=== PATIENT | female | born 1955 | race Caucasian/White ===

== ENCOUNTER → 2019-04-20 | Outpatient (CLI) | payer OTHER ==
[~2019-04-20] MED LIST: ALBU90OI INH; AMOCLA875 PO; FURO100EL PO; LEVFLO500 PO; MUPI2TC TOP; OMEP20ER PO; OXYB5 PO; OXYGEN; PARO20; RISP2; RISP2 PO; TIOT18; [UNRECOGNIZED DRUG - REMARK]; [UNRECOGNIZED DRUG - REMARK]; [UNRECOGNIZED DRUG - REMARK]
[2019-04-23 15:31] LABS: Adenovirus F 40/41 Not Detected (NOT DETECT); Astrovirus Not Detected (NOT DETECT); Campylobacter Sp Not Detected (NOT DETECT); Cryptosporidium Not Detected (NOT DETECT); Cyclospora Cayetanensis Not Detected (NOT DETECT); E. Coli O157 Not Detected (NOT DETECT); Entamoeba Histolytica Not Detected (NOT DETECT); Enteroaggregative E. coli-EAEC Not Detected (NOT DETECT); Enteropathogenic E. coli-EPEC Not Detected (NOT DETECT); Enterotoxigenic E. coli-ETEC Not Detected (NOT DETECT); Giardia Lamblia Not Detected (NOT DETECT); Norovirus GI/GII Not Detected (NOT DETECT); Plesiomonas Shigelloides Not Detected (NOT DETECT); Rotavirus A Not Detected (NOT DETECT); Salmonella Sp Not Detected (NOT DETECT); Sapovirus Not Detected (NOT DETECT); Shiga Toxin-prod E. coli-STEC Not Detected (NOT DETECT); Shigella/Enteroin E. coli-EIEC Not Detected (NOT DETECT); Vibrio Cholerae Not Detected (NOT DETECT); Vibrio Sp Not Detected (NOT DETECT); Yersinia Enterocolitica Not Detected (NOT DETECT)
== END | disposition home or self-care (01) ==
LOC: LAB EV 20:10
PROVIDERS: Physician Assistant
DX: R19.7 Diarrhea, unspecified (principal)
CPT/HCPCS: 0097U

== ENCOUNTER 2021-03-15 16:53 | Inpatient (IN) | payer OTHER ==
[~2021-03-15] VITALS: Ht 167.6 cm; Wt 75.7 kg
[~2021-03-15 16:53] MED LIST changes: +RISP1 PO; -RISP2 PO
[2021-03-15 17:37] LABS: BASOPHILS ABSOLUTE AUTO 0.07 K/mm3 (0.00-0.23); BASOPHILS PERCENT AUTO 0 % (0-2); EOSINOPHILS ABSOLUTE AUTO 0.01 K/mm3 (0.00-0.68); EOSINOPHILS PERCENT AUTO 0 % (0-6); Hematocrit 45.1 % (33.0-51.0); Hemoglobin 16.2 g/dL (11.5-16.0); IMMATURE GRAN ABSOLUTE AUTO 0.19 K/mm3 (0.00-0.10); IMMATURE GRAN PERCENT AUTO 1 % (0-1); LYMPHOCYTES ABSOLUTE AUTO 0.93 K/mm3 (0.84-5.20); LYMPHOCYTES PERCENT AUTO 4 % (21-46); MONOCYTES PERCENT AUTO 8 % (4-13); Mean Corpuscular HGB 32.2 pg (26.0-34.0); Mean Corpuscular HGB Conc 35.9 g/dL (31.5-36.5); Mean Corpuscular Volume 90 fL (80-100); Mean Platelet Volume 8.4 fL (9.1-12.4); NEUTROPHILS PERCENT AUTO 88 % (41-73); Platelet Count 276 K/mm3 (150-400); RDW Coefficient Variation 12.5 % (11.7-14.2); RDW Standard Deviation 41.2 fL (35.1-46.3); Red Blood Cell Count 5.03 M/mm3 (3.80-5.20)
[2021-03-15 18:01] LABS: Alanine Aminotransfer (ALT/SGP 142 U/L (12-78); Albumin, Blood 3.2 g/dL (3.4-5.0); Albumin/Globulin Ratio 0.9 (0.8-1.8); Alk Phos 96 U/L (50-136); Anion Gap 11 mmol/L (6-16); Aspartate Aminotrans (AST/SGOT 498 U/L (12-37); Bilirubin, Total 0.9 mg/dL (0.1-1.0); Blood Urea Nitrogen 24 mg/dL (8-24); Bun/Creatinine Ratio 37.9 (12.0-20.0); CO2, Blood 26 mmol/L (21-32); Calcium, Blood 9.5 mg/dL (8.5-10.1); Chloride, Blood 83 mmol/L (98-108); Creatinine, Blood 0.63 mg/dL (0.40-1.00); Ethanol (Alcohol), Blood, Med <3 mg/dL; Globulin, Blood 3.7 g/dL (2.2-4.0); Glomerular Filtration Rate >60 (60-); Glucose, Blood 62 mg/dL (70-99); Magnesium, Blood 1.9 mg/dL (1.6-2.4); Potassium, Blood 3.8 mmol/L (3.5-5.5); Sodium, Blood 120 mmol/L (136-145); Total Protein, Blood 6.9 g/dL (6.4-8.2); Troponin I 0.348 ng/mL (0.000-0.040)
[2021-03-15 18:25] LABS: CPK Creatine Kinase 7142 U/L (26-193)
[2021-03-15 18:38] LABS: Creatine Kinase MB 66.1 ng/mL (0.0-3.6); Creatine Kinase MB Index 0.9 (0.0-4.0)
[2021-03-15 18:41] LABS: Source, Urine Catheter
[2021-03-15 18:44] LABS: Bilirubin, Urine Neg (Neg); Blood, Urine 5+ (Neg); Color, Urine Yellow (P-Yellow); Glucose Qualitative, Urine Neg (Neg); Ketones, Urine 4+ (Neg); Leukocyte Esterase, Urine Neg (Neg); Nitrite, Urine Pos (Neg); Protein, Urine 3+ (Neg); Specific Gravity, Urine 1.025 (1.003-1.022); Urobilinogen, Urine NORM (Normal)
[2021-03-15 18:45] LABS: SARS-Cov-2 (COVID-19) PCR, MMC NEGATIVE (NEGATIVE)
[2021-03-15 18:48] LABS: Appearance, Urine Hazy (Clear)
[2021-03-15 18:52] LABS: Bacteria Many /hpf
[2021-03-15 18:54] LABS: Red Blood Cells, Urine 0-2 /hpf (0-2)
[2021-03-15 18:56] LABS: Squamous Epithelial Cells Rare /hpf (Few)
[2021-03-15 18:57] LABS: U Amphetamine Screen Not Detected; U Barbituate Screen Not Detected; U Benzodiazapine Screen Not Detected; U Buprenorphine Screen Not Detected; U Cannabinoids Screen Not Detected; U Cocaine Screen Not Detected; U Methadone Screen Not Detected; U Methamphetamine Screen Not Detected; U Opiates Screen Not Detected; U Oxycodone Screen Not Detected; U Phencyclidine Screen Not Detected; U Propoxyphene Screen Not Detected
[2021-03-15 22:15] LABS: International Normalized Ratio 1.12; Prothrombin Time Results 11.7 Sec (9.7-11.5)
[2021-03-16 00:09] LABS: PCO2 Arterial 63.1 mmHg (35-45); PO2 Arterial 72.7 mmHg (80-100); pH Blood Arterial 7.27 (7.35-7.45)
[2021-03-16 01:29] LABS: BASOPHILS ABSOLUTE AUTO 0.04 K/mm3 (0.00-0.23); BASOPHILS PERCENT AUTO 0 % (0-2); EOSINOPHILS ABSOLUTE AUTO 0.02 K/mm3 (0.00-0.68); EOSINOPHILS PERCENT AUTO 0 % (0-6); Hematocrit 38.7 % (33.0-51.0); Hemoglobin 13.8 g/dL (11.5-16.0); IMMATURE GRAN ABSOLUTE AUTO 0.12 K/mm3 (0.00-0.10); IMMATURE GRAN PERCENT AUTO 1 % (0-1); LYMPHOCYTES ABSOLUTE AUTO 0.95 K/mm3 (0.84-5.20); LYMPHOCYTES PERCENT AUTO 5 % (21-46); MONOCYTES ABSOLUTE AUTO 2.14 K/mm3 (0.16-1.47); MONOCYTES PERCENT AUTO 10 % (4-13); Mean Corpuscular HGB 32.4 pg (26.0-34.0); Mean Corpuscular HGB Conc 35.7 g/dL (31.5-36.5); Mean Corpuscular Volume 91 fL (80-100); Mean Platelet Volume 8.7 fL (9.1-12.4); NEUTROPHILS ABSOLUTE AUTO 17.67 K/mm3 (1.96-9.15); NEUTROPHILS PERCENT AUTO 84 % (41-73); Platelet Count 247 K/mm3 (150-400); RDW Coefficient Variation 12.7 % (11.7-14.2); RDW Standard Deviation 42.5 fL (35.1-46.3); Red Blood Cell Count 4.26 M/mm3 (3.80-5.20); White Blood Cell Count 20.94 K/mm3 (4.00-11.30)
[2021-03-16 01:47] LABS: Alanine Aminotransfer (ALT/SGP 116 U/L (12-78); Albumin, Blood 2.5 g/dL (3.4-5.0); Albumin/Globulin Ratio 0.8 (0.8-1.8); Alk Phos 81 U/L (50-136); Anion Gap 5 mmol/L (6-16); Aspartate Aminotrans (AST/SGOT 333 U/L (12-37); Bilirubin, Total 0.4 mg/dL (0.1-1.0); Blood Urea Nitrogen 22 mg/dL (8-24); Bun/Creatinine Ratio 36.2 (12.0-20.0); CO2, Blood 29 mmol/L (21-32); Calcium, Blood 8.8 mg/dL (8.5-10.1); Chloride, Blood 92 mmol/L (98-108); Creatinine, Blood 0.61 mg/dL (0.40-1.00); Globulin, Blood 3.2 g/dL (2.2-4.0); Glomerular Filtration Rate >60 (60-); Glucose, Blood 111 mg/dL (70-99); Potassium, Blood 4.3 mmol/L (3.5-5.5); Sodium, Blood 126 mmol/L (136-145); Total Protein, Blood 5.7 g/dL (6.4-8.2)
--- NOTE | 2021-03-16 04:51 | NUR ---
ADMISSION SUMMARY. PT IS A&O TO SELF. PT IS ON 4L O2 VIA NC. CPAP MACHINE AT BEDTIME DUE TO INCREASED ABG PER RT.PT HAD INTERMITTEN DESATURATION EPISODES ON CPAP. RT MONITORING. PT HAD A -VE CT SCAN. NO ACUTE CHANGES NOTED.PT HAS A NECROTIC LOOKING WOUND ON LEFT FOOT. SCHEDULED MEDS ADMINISTERED PER EMAR, PT TOLERATED WELL. ADLS PROVIDED. SAFETY MEASURES IN PLACE. WILL CONTINUE TO MONITOR.
[2021-03-16 09:51] LABS: Anion Gap 5 mmol/L (6-16); Blood Urea Nitrogen 19 mg/dL (8-24); CO2, Blood 28 mmol/L (21-32); Calcium, Blood 8.8 mg/dL (8.5-10.1); Chloride, Blood 95 mmol/L (98-108); Creatinine, Blood 0.59 mg/dL (0.40-1.00); Glomerular Filtration Rate >60 (60-); Glucose, Blood 86 mg/dL (70-99); Potassium, Blood 4.1 mmol/L (3.5-5.5); Sodium, Blood 128 mmol/L (136-145)
--- NOTE | 2021-03-16 13:45 | NUR ---
ADMIT: 03/15/21 DISCHARGE: TBD DX: Sepsis CC: Margi Arana RESIDENCE: Home - [address] [place] [address] [address] [place], [place]. [address] [employer]/Contacts: Christiano Armijo, Brother - [phone] Prior to admit - DME: Oxygen equipment CCM: None HHC/Hospice: None H&P as noted by Jerrod Peacock MD
--- NOTE | 2021-03-16 18:46 | NUR ---
Alert and oriented x2 with forgetfulness . Denies any pain, headache , dizziness or nausea. One person assist with ADLS. Continue on 6 Liter High flow oxygen with sp02 at 94 % or greater, No SOB noted. Contiune on Ceftriaxone for UTI sepsis. Keppra was given for seizure. Sodium 128 and Echo was unremarkable. Blood culure was positive for gram positive cocci and Dr Snider notified. Vitas signs are stable. Bed alarm on and call light within reach. Continue to monitor.
[2021-03-17 01:04] LABS: PO2 Arterial 54.4 mmHg (80-100); pH Blood Arterial 7.24 (7.35-7.45)
[2021-03-17 01:05] LABS: PCO2 Arterial 76.7 mmHg (35-45)
--- NOTE | 2021-03-17 04:40 | NUR ---
SHIFT SUMMARY PT NOT EASILY AROUSABLE MOST OF TNHE SHIFT. PT ON O2 6L VIA NC. PT IS ON BIPAP MACHINE WITH HIGH HANNA. 0119 PT NOTED TO BE DESATURATING TO THE LOW 80S ON MONITOR. RT NOTIFIED. ABGS ORDERED. PH 7.24, CO2 76. DR. GRACE NOTIFIED. PT TRANSFERED TO PCU FOR FURTHER INTERVENTION. WILL CONTINUE TO MONITOR .
--- NOTE | 2021-03-17 06:24 | NUR ---
SHIFT SUMMARY TRANSFER PT FROM [facility] FLOOR. ARRIVAL AT 0235. INCOHERENT AND LETHARGIC. PH OF 7.24 AT 0100 . ON BIPAP 14/ 50 FIO2, MAINTAINING SATS OVER 95%. PT IS INCONTINENT OF URINE. TELE READS NSR 80'S. BP STABLE. LEFT A/C SALINE LOCKED. SCATTERED SCABS ALL ACROSS BODY. COVERED WITH MEPILEXES. PT REMAINS ON BEDREST. Q2 TURNS. LEFT IN BED SLEEPING WITH CALL ALARM AT SIDE. WILL CONTINUE TO MONITOR [facility]NT[facility]
--- NOTE | 2021-03-17 16:57 | NUR ---
SHIFT SUMMARY PT WAS UNRESPONSIVE EXCEPT TO PAINFUL STIMULI AT THE BEGINNING OF THE SHIFT. AT APPROXIMATELY 1500 PT BEGAN TO ROUSE. BIPAP WAS REMOVED AND HIGH FLOW NASAL CANNULA WAS PLACED AT 10L. SPO2 HAS MAINTAINED >90%. DUE TO PT BEING UNRESPONSIVE, ALCOHOL WITHDRAWAL SCORING WAS NOT DONE. PT STATED THAT THEY RARELY DRINK ALCOHOL DURING INTERVIEW AFTER ROUSING. PT ALSO STATED THAT THEY WERE DIAGNOSED WITH DM IN THE RECENT PAST. PT IS STILL LETHARGIC. VSS, NO OTHER ACUTE CHANGES NOTED.
--- NOTE | 2021-03-18 06:10 | NUR ---
SHIFT SUMMARY NO ACUTE CHANGES THIS SHIFT. PT LETHARGIC WHILE ON BIPAP. ON BIPAP 14/6 40% FIO2 MOST OF NIGHT SLEEPING. CURRENTLY AWAKE, SEATED UP, AND ON 5L NC. IMPROVED MENTATION THIS MORNING. TELE READS NSR 60'S. BP STABLE. PT REMAINS INCONTINENT THIS EVENING. PT UNABLE TO EFFECTIVELY SWALLOW FLUIDS. WILL FOLLOW UP FOR SWALLOW EVAL. WILL CONTINUE TO MONITOR TILL REPORT GIVEN TO DAYSCAMILO RESENDIZ
--- NOTE | 2021-03-18 10:10 | NUR ---
CARE ASSUMPTION PATIENT A/OX4, MOMENTS OF CONFUSION. VSS. SPO2 >90% ON 6L HF. PATIENT REPORTS NO PAIN, CHEST PAIN, OR SOB. PATIENT WAS ABLE TO EAT BREAKFAST. BED IN LOWEST POSITION AND CALL LIGHT WITHIN REACH. WILL CONTINUE TO MONITOR AND PROVIDE CARE.
--- NOTE | 2021-03-18 17:57 | NUR ---
SHIFT SUMMARY PATIENT ALERT AND ORIENTATED X3, BUT HAS MOMENTS OF CONFUSION AND FORGETFULLNESS. VSS. TELE SR 70S. SPO2 >90% HIGH FLOW NC 10L. PATIENT REPORTS NO CHEST PAIN, PAIN, OR SOB. PATIENT IS INCONTINENT. PATIENT HAS WOUNDS FROM FALL AT HOME AND PICTURES ARE IN THE CHART. DRESSING CHANGED ON RIGHT FOOT, AND WOUND CARE DONE TO KNEES. NO ACUTE CHANGES THIS SHIFT. CALL LIGHT WITHIN REACH. WILL CONTINUE TO MONITOR AND PROVIDE CARE UNTIL HAND OFF WITH NEXT SHIFT.
[2021-03-19 04:33] LABS: Source, Urine Catheter
[2021-03-19 04:40] LABS: Bilirubin, Urine Neg (Neg); Blood, Urine 1+ (Neg); Glucose Qualitative, Urine Neg (Neg); Ketones, Urine Neg (Neg); Leukocyte Esterase, Urine Neg (Neg); Nitrite, Urine Neg (Neg); Protein, Urine Neg (Neg); Urobilinogen, Urine NORM (Normal)
[2021-03-19 05:04] LABS: Appearance, Urine Clear (Clear); Color, Urine Yellow (P-Yellow)
[2021-03-19 05:05] LABS: Bacteria Few /hpf; Red Blood Cells, Urine 0-2 /hpf (0-2); Squamous Epithelial Cells Mod /hpf (Few); White Blood Cells, Urine Not Seen /hpf (0-5)
--- NOTE | 2021-03-19 06:42 | NUR ---
SHIFT SUMMARY PT RESTED THROUGH THE NIGHT SOME, BUT WAS VERY ANXIOUS AND RESTLESS AT TIMES. VERY CONFUSED THROUGH THE NIGHT. BED ALARM ON, REORIENTING OFTEN. PRN ATIVAN GIVEN. SATS >90% ON 2-4LNC (BASELINE 4LNC), TELE NSR. CROCKER PLACED - DRIANING TO GRAVITY. VSS. NO C/O PAIN. CALL LIGHT WITHIN REACH, BED IN LWOEST POSITION. WILL CONTINUE TO MONITOR.
--- NOTE | 2021-03-19 08:16 | NUR ---
CARE ASSUMPTION PATIENT IS LETHARGIC, AROUSABLE WITH VERBAL STIMULIS, BUT FALLS BACK ASLEEP QUICKLY. VSS. TELE SR. SPO2 >90% ON 4L NC (BASELINE). PATIENT REPORTS NO PAIN, CHEST PAIN, OR SOB. CALL LIGHT WITHIN REACH, BED IN LOWEST POSITION, AND BED ALARM ON. WILL CONTIUE TO MONITOR AND PROVIDE CARE.
[2021-03-19 09:30] LABS: BASOPHILS ABSOLUTE AUTO 0.02 K/mm3 (0.00-0.23); BASOPHILS PERCENT AUTO 0 % (0-2); EOSINOPHILS ABSOLUTE AUTO 0.02 K/mm3 (0.00-0.68); EOSINOPHILS PERCENT AUTO 0 % (0-6); Hematocrit 38.6 % (33.0-51.0); Hemoglobin 12.8 g/dL (11.5-16.0); IMMATURE GRAN ABSOLUTE AUTO 0.09 K/mm3 (0.00-0.10); IMMATURE GRAN PERCENT AUTO 1 % (0-1); LYMPHOCYTES ABSOLUTE AUTO 1.08 K/mm3 (0.84-5.20); LYMPHOCYTES PERCENT AUTO 9 % (21-46); MONOCYTES ABSOLUTE AUTO 1.42 K/mm3 (0.16-1.47); MONOCYTES PERCENT AUTO 11 % (4-13); Mean Corpuscular HGB 32.2 pg (26.0-34.0); Mean Corpuscular HGB Conc 33.2 g/dL (31.5-36.5); Mean Corpuscular Volume 97 fL (80-100); Mean Platelet Volume 8.8 fL (9.1-12.4); NEUTROPHILS ABSOLUTE AUTO 9.99 K/mm3 (1.96-9.15); NEUTROPHILS PERCENT AUTO 79 % (41-73); Platelet Count 216 K/mm3 (150-400); RDW Standard Deviation 46.7 fL (35.1-46.3); Red Blood Cell Count 3.98 M/mm3 (3.80-5.20); White Blood Cell Count 12.62 K/mm3 (4.00-11.30)
[2021-03-19 09:48] LABS: Anion Gap 1 mmol/L (6-16); Blood Urea Nitrogen 8 mg/dL (8-24); Bun/Creatinine Ratio 18.7 (12.0-20.0); CO2, Blood 40 mmol/L (21-32); Calcium, Blood 8.9 mg/dL (8.5-10.1); Chloride, Blood 92 mmol/L (98-108); Creatinine, Blood 0.43 mg/dL (0.40-1.00); Glomerular Filtration Rate >60 (60-); Glucose, Blood 106 mg/dL (70-99); Sodium, Blood 133 mmol/L (136-145)
[2021-03-19 11:50] LABS: PCO2 Arterial 65 mmHg (35-45); PO2 Arterial 76 mmHg (80-100); pH Blood Arterial 7.44 (7.35-7.45)
--- NOTE | 2021-03-19 17:45 | NUR ---
SHIFT SUMMARY PATIENT IS A/OX3, MOMENTS OF CONFUSION. SLEPT MOST OF THE DAY. VSS. SPO2 >90% ON 4L NC. TELE SR. CROCKER IN PLACE DRAINING WITH GRAVITY, JACKELIN COLOR AND CLEAR. NO PAIN, CHEST PAIN, OR SHORTNESS OF BREATH. BED IN LOWEST POSITION AND CALL LIGHT WITHIN REACH. WILL CONTINUE TO MONITOR AND PROVIDE CARE UNTIL HAND OFF WITH NEXT SHIFT.
--- NOTE | 2021-03-20 04:12 | NUR ---
SHIFT SUMMARY: PT RESTLESS THIS SHIFT, TRYING TO REMOVE BIPAP AND GET OOB. MEDICATED WITH PRN ATIVAN WHEN REDIRECTION FAILED. PLACED ON BIPAP AT HS, SATS >93%, LUNG SOUNDS DECREASED THROUGHOUT. REQUIRES ASSISTANCE TO TURN AND REPOSITION, PT DID RELAX AND BECOME LESS AGITATED AFTER ATIVAN ADMIN. SR/ST THROUGHOUT NIGHT, VSS AND AFEBRILE. WILL CONTINUE TO MONITOR. ASTRID FAIR
[2021-03-20 08:50] LABS: BASOPHILS ABSOLUTE AUTO 0.02 K/mm3 (0.00-0.23); BASOPHILS PERCENT AUTO 0 % (0-2); EOSINOPHILS PERCENT AUTO 0 % (0-6); Hematocrit 39.5 % (33.0-51.0); Hemoglobin 12.9 g/dL (11.5-16.0); IMMATURE GRAN ABSOLUTE AUTO 0.07 K/mm3 (0.00-0.10); IMMATURE GRAN PERCENT AUTO 1 % (0-1); LYMPHOCYTES ABSOLUTE AUTO 0.99 K/mm3 (0.84-5.20); LYMPHOCYTES PERCENT AUTO 8 % (21-46); MONOCYTES ABSOLUTE AUTO 1.16 K/mm3 (0.16-1.47); MONOCYTES PERCENT AUTO 10 % (4-13); Mean Corpuscular HGB 31.6 pg (26.0-34.0); Mean Corpuscular HGB Conc 32.7 g/dL (31.5-36.5); Mean Corpuscular Volume 97 fL (80-100); Mean Platelet Volume 8.8 fL (9.1-12.4); NEUTROPHILS ABSOLUTE AUTO 9.49 K/mm3 (1.96-9.15); NEUTROPHILS PERCENT AUTO 81 % (41-73); Platelet Count 213 K/mm3 (150-400); RDW Coefficient Variation 12.9 % (11.7-14.2); RDW Standard Deviation 46.4 fL (35.1-46.3); Red Blood Cell Count 4.08 M/mm3 (3.80-5.20); White Blood Cell Count 11.73 K/mm3 (4.00-11.30)
[2021-03-20 09:07] LABS: Anion Gap 1 mmol/L (6-16); Blood Urea Nitrogen 9 mg/dL (8-24); Bun/Creatinine Ratio 19.7 (12.0-20.0); CO2, Blood 41 mmol/L (21-32); Chloride, Blood 92 mmol/L (98-108); Creatinine, Blood 0.46 mg/dL (0.40-1.00); Glomerular Filtration Rate >60 (60-); Glucose, Blood 95 mg/dL (70-99); Potassium, Blood 4.1 mmol/L (3.5-5.5); Sodium, Blood 134 mmol/L (136-145)
--- NOTE | 2021-03-20 16:42 | NUR ---
report called to medical floor RN who will assume pt care. NS INFUSING AT 125ML/HR PER ORDERS. ALL BELONGINGS WITH PT ON TRANSFER.
--- NOTE | 2021-03-20 18:25 | NUR ---
ASSSUMPTION OF CARE PATIENT CAME TO 358 FROM PCU 14 AT 1630 THIS SHIFT. VITAL SIGNS STABLE, PATIENT SHOWN HOW TO USE THE CALL LIGHT.
--- NOTE | 2021-03-21 03:40 | NUR ---
SHIFT SUMMARY INCREASED OXYGEN TO 10LPM VIA NASAL CANULA AT 0300. PT BEGAN TO DE-SAT DOWN TO THE 80'S WITH AUDIBLE WHEEZING HEARD FROM HALLWAY. PT WAS ABLE TO TOLERATE TITRATING OXYGEN DOWN TO 6LPM VIA NC. INITIALLY, PT TOLERATED WEARING THE C-PAP FOR SLEEP FROM 22:00 TO 01:00. THEN, PT STATED SHE WANTED TO USE NC. RN NOTIFIED RT MIKE M. PT RECEIVED ATIVAN AT 02:30 DUE TO REPORTING ANXIETY. PT C/O PAIN TO HER LEFT CHEST WALL, WITH BREATHING. WHEEZING IN ALL LUNG VAZQUEZ. PT SATING AT 98% ON 6LPM. RT NOTIFIED. CROCKER IN PLACE, DRAINING DARK YELLOW URINE. IV INFUSING NS AT 125ML/HR IN RFA. BED IN LOWEST POSITION. CALL LIGHT WITHIN REACH, NEAR NURSES' DESK FOR FREQUENT MONITORING.
--- NOTE | 2021-03-21 03:55 | NUR ---
WOUND CARE COMPLETED - RE-WRAPPED PT'S RIGHT FOOT WITH KERLEX DUE TO SATURATION FROM MEDI-HONEY. CLEANSED WOUNDS ON BILAT KNEES WITH WOUND CLEANSER, PATTED DRY, APPLIED SKIN PREP. PT RECIEVED PRN BREATHING TREATMENTS TWICE THIS SHIFT.
[2021-03-21 05:33] LABS: Anion Gap 1 mmol/L (6-16); Blood Urea Nitrogen 7 mg/dL (8-24); Bun/Creatinine Ratio 17.3 (12.0-20.0); CO2, Blood 39 mmol/L (21-32); Calcium, Blood 8.6 mg/dL (8.5-10.1); Chloride, Blood 93 mmol/L (98-108); Glomerular Filtration Rate >60 (60-); Glucose, Blood 90 mg/dL (70-99); Potassium, Blood 3.8 mmol/L (3.5-5.5); Sodium, Blood 133 mmol/L (136-145)
--- NOTE | 2021-03-21 14:45 | NUR ---
Brief visit this afternoon. Pt resting in bed and is A&OX3. Pt reports mild pain in her heart and lungs. Pt reports living alone and has a brother that lives in [place]. Pt reports plan to call her community case manager to set up caregiver support when she returns home. Review of POC with Pt and offered therapeutic listening. Ended visit to allow Pt to rest. Spoke with Pt's Primary RN Eun and discussed case. Palliative Care will remain available.
--- NOTE | 2021-03-22 03:47 | NUR ---
SHIFT SUMMARY PT BECAME VERY RESTLESS THIS SHIFT. UNABLE TO TOLERATE C-PAP AT NIGHT FOR SLEEP, RT NOTIFIED. PT SATING ABOVE 92% ON 4LPM VIA NASAL CANULA. PT ATTEMPTING TO GET OUT OF BED INDEPENDENTLY. BED ALARM ON. PT EDUCATED THAT IT IS NOT SAFE FOR HER TO GET OUT OF BED WITHOUT STAFF PRESENT. PT REPORTS SHE IS CONCERNED FOR THE SAFETY OF HER APARTMENT. PRN ATIVAN GIVEN. BED IN LOWEST POSITION, WILL CONTINUE TO MONITOR WITH BED ALARM ON.
[2021-03-22 05:46] LABS: Anion Gap 1 mmol/L (6-16); Blood Urea Nitrogen 6 mg/dL (8-24); Bun/Creatinine Ratio 14.2 (12.0-20.0); CO2, Blood 40 mmol/L (21-32); Calcium, Blood 9.8 mg/dL (8.5-10.1); Chloride, Blood 93 mmol/L (98-108); Creatinine, Blood 0.42 mg/dL (0.40-1.00); Glomerular Filtration Rate >60 (60-); Glucose, Blood 115 mg/dL (70-99); Sodium, Blood 134 mmol/L (136-145)
--- NOTE | 2021-03-22 16:58 | NUR ---
SHIFT SUMMARY PT RESTING QUIETLY AT START OF SHIFT. ADMITTED FOR SEPSIS R/T UTI. PT SEEMS ORIENTED AT TIMES, BUT THEN COMPLETELY CONFUSED AT OTHER TIMES. PT WANTING TO GO HOME, BUT LIVES ALONE AND WAS FOUND DOWN. PT HAVING FREQUENT FALLS AT HOME. KNEES WITH DEEP ABRASIONS ON THEM. FOOT WOUND WITH DRSNahun C/D/I; TO BE CHANGED TOMORROW, Q3 DAYS. DR CANDELARIO IN TO SEE PT THIS AM. PT UNABLE TO CARE TO FOR HERSELF AT THIS TIME. PT TO BE SEEN BY P/T FOR D/C PLANNING. OBI TAYLOR D/C'D. PT REPORTED THAT SHE WAS INDEPENDENT TO BTHRM AT HOME BEFORE COMING TO HOSPITAL. PT HAS BEEN UP TO EOB FREQUENTLY SETTING OFF BED ALARM ALL DAY, WANTING TO GO SHOPPING. PT ORIENTED BUT FORGETFUL. ASSISTED PT IN CALLING FRIEND WHO IS TAKING CARE OF HER CAT. PT GRATEFUL. CALL LT IN REACH.
--- NOTE | 2021-03-23 05:16 | NUR ---
PT IS ASLEEP LYING IN BED. RR EVEN AND UNLABORED CURRENTLY ON 4L NC. PT IS IN VEST RESTRAINT DUE TO SEVERAL ATTEMPTS TO GET OUT OF BED. PT REQUIRED FREQUENT REORIENTING. BED ALARM ON, BED IN LOW POSITION AND CALL LIGHT WITHIN REACH.
[2021-03-23 05:33] LABS: Anion Gap 0 mmol/L (6-16); Blood Urea Nitrogen 11 mg/dL (8-24); CO2, Blood 43 mmol/L (21-32); Calcium, Blood 9.3 mg/dL (8.5-10.1); Chloride, Blood 92 mmol/L (98-108); Creatinine, Blood 0.46 mg/dL (0.40-1.00); Glomerular Filtration Rate >60 (60-); Glucose, Blood 102 mg/dL (70-99); Potassium, Blood 4.4 mmol/L (3.5-5.5); Sodium, Blood 135 mmol/L (136-145)
--- NOTE | 2021-03-23 09:56 | NUR ---
Per chart review, pt. has potential to discharge within the next 24-48 hours. SNF indicated per PT notes on 03/20/21. Patient remains on O2 4LPM via NC. Plan to discuss long-term care planning with pt. today. We will need to determine what support she is likely to need post discharge from SNF. Unable to discuss last week. Pt. does have some family support. Insurance is [employer]. She also has A as secondary. Potential to assist pt. in securing long-term care benefits or caregiver benefits through [facility]. I will work with [facility] staff to assist with that process. Patient has been restraint which will certainly be of concern for the SNF. It appears that restraints have been placed due to patient getting out of bed and concerns with safety. [facility] bed alarm is used as an alternative. The SNF will likely require 24-48 hours without restraints. We will need [employer] approval for SNF as well. Hoping PT will be able to see pt. this am. We will need recent PT assessment. I will contact Lydia to request review once PT notes for today are avaiable.
--- NOTE | 2021-03-23 13:54 | NUR ---
FLU SHOT GIVEN VERBAL CONSENT FROM PT. FLU SHOT GIVEN IN L DELTOID, PT TOLERATED WELL.
--- NOTE | 2021-03-23 15:54 | NUR ---
WOUND CARE WOUND CARE COMPLETEED AFTER PT SHOWER TODAY. R FOOT ABRASION NOTED TO HAVE SIGNIFICANT CHANGE IN COLOR OF THICK BLACK ESCHAR. MD CONSULTED AND AT BEDSIDE TO EVALUATE. DISCUSSED PLANS FOR MD TO DEBRIDMENT TOMORROW. NEW PICTURE OF FOOT WOUND TAKEN AND PLACED IN CHART. RT FOOT AND KNEEW WOUND CLEANSED MEDIHONEY APPLIED AND COVERED WITH EXUDRY PAD AND WRAPPED WITH KURLEX TO SECURE IN PLACE. PT TOLERATED WELL.
--- NOTE | 2021-03-23 17:41 | NUR ---
SHIFT SUMMARY 65 Y FEMALE ADMITTED WITH SEPSIS AND UTI AFTER BEING FOUND DOWN AT HOME. PT HAS BEEN A&O, PLEASANT AND COOPERATIVE WITH CARE. RESTRAINTS WERE REMOVED AT BEGINING OF SHIFT AND PT HAS CALLED APPROPRIATELY FOR ASSISTANCE. PT EVAL DONE TODAY AND PT TOLERATED WELL. WOUND CARE COMPLETED (SEE SEPARATE NOTE) TODAY AND PLANS FOR WOUND DEBRIDMENT OF R FOOT WOUND PENDING FOR TOMORROW. D/C PLANNING IN PROCESS, PT CURRENTLY LIVES AT HOME ALONE AND MAY REQUIRE ADDITIONAL SERVICES. NO OTHER CHANGES THIS SHIFT.
--- NOTE | 2021-03-23 17:54 | NUR ---
Discussed recommendation for SNF with pt. who is agreeable to going. Denied preference on facility. Packet sent for review to [facility] for inpatient rehab. Contacted Mikaela with [facility] central admissions to discuss patient's care. They will be reviewing her chart. Plan to request prior auth tomorrow morning if patient is accepted to facility.
--- NOTE | 2021-03-24 05:57 | NUR ---
PATIENT IS ASLEEP LYING IN BED. RR EVEN AND UNLABORED. PT HAS EPISODES OF SOB WITH MOVEMENT CURRENTLY ON 4L NC. NO ACUTE CHANGES OVERNIGHT, BED ALARM ON, BED IN LOW POSITION AND CALL LIGHT WITHIN REACH.
--- NOTE | 2021-03-24 16:36 | NUR ---
PATIENT ALERT AND ORIENTED WITH NOTED FORGETFULNESS. PLEASANT WITH STAFF AND COOPERATIVE WITH CARE. RLE AND R FOOT WOUNDS DEBREDED BY DR YANCEY THIS AFTERNOON; WOUND CARE PERFORMED INSTRUCTED BY MD. PATIENT CALLS FOR STAFF ASSIST NEEDED. CALL LIGHT WITHIN REACH.
--- NOTE | 2021-03-25 06:07 | NUR ---
SHIFT SUMMARY PT IS A&OX3, FORGETFUL AT TIMES. PT IS ON 4-5L O2. MEDS ADMINISTERED PER EMAR. LEFT FOOT WOUND TREATMENT DONE PER EMAR. PT HAS INCREASED ANXIETY, PRN MED ADMINISTERED PER EMAR WITH GOOD EFFECTS. ADLS PROVIDED, SAFETY MEASURES IN PLACE.
--- NOTE | 2021-03-25 10:09 | NUR ---
LATE ENTRY COPIED FROM [facility] EMR UPDATED 03/24/21: PER JM PERAZA, CLINICAL DELI ASSOCIATE AT [facility] HAS REQUESTED FOR PT. TO BE OUT OF RESTRAINTS FOR 48 HRS PRIOR TO ACCEPTING. TOMORROW MORNING WILL 48 HOURS RESTRAINT FREE WITHOUT ISSUES. PLAN TO FAX UPDATED NOTES TO FACILITY IN THE AM.
--- NOTE | 2021-03-25 10:21 | NUR ---
[facility] has accepted patient for admit to facility today. Contacted [facility] to schedule wheelchair van transport. Requested transport at roughly 12 pm. They are going to call back with ETA. Pt. will need O2 for transport. Crew can return O2 bottle.
--- NOTE | 2021-03-25 13:56 | NUR ---
GAVE REPORT TO BEATRIZ NURSE, AT [facility] @ 6630.
[2021-03-25] MEDS ORDERED: MIRALAX17 GM PO (15:37)
[2021-03-25] MEDS ORDERED: MEDIHONEY TOP (15:37)
[2021-03-25] MEDS ORDERED: IPRAT-ALBUT 0.5-3 ML INH (15:38)
== END 2021-03-25 13:10 | DRG 871 ==
LOC: ER 16:53 → PCU 19:19 → MEDS 19:19 → PCU 03-17 01:47 → MEDS 03-20 16:54
PROVIDERS: Emergency Medicine; Internal Medicine; ADMIT Internal Medicine
PROC: 3E02340 Introduction of Influenza Vaccine into Muscle, Percutaneous Approach (ICD-10-PCS; 2021-03-16)
PROC: 0HBMXZZ Excision of Right Foot Skin, External Approach (ICD-10-PCS; principal; 2021-03-24)
DX: A41.59 Other Gram-negative sepsis (principal); G93.41 Metabolic encephalopathy; J96.21 Acute and chronic respiratory failure with hypoxia; N39.0 Urinary tract infection, site not specified; E87.1 Hypo-osmolality and hyponatremia; M62.82 Rhabdomyolysis; E87.4 Mixed disorder of acid-base balance; K21.9 Gastro-esophageal reflux disease without esophagitis; Z20.822 Contact with and (suspected) exposure to COVID-19; J44.9 Chronic obstructive pulmonary disease, unspecified; F31.9 Bipolar disorder, unspecified; E86.0 Dehydration; Z23 Encounter for immunization; F10.10 Alcohol abuse, uncomplicated; E16.2 Hypoglycemia, unspecified; E78.5 Hyperlipidemia, unspecified; S80.812A Abrasion, left lower leg, initial encounter; S80.811A Abrasion, right lower leg, initial encounter; W18.30XA Fall on same level, unspecified, initial encounter; F25.9 Schizoaffective disorder, unspecified; F17.210 Nicotine dependence, cigarettes, uncomplicated; Z98.890 Other specified postprocedural states; Z99.81 Dependence on supplemental oxygen; Z88.0 Allergy status to penicillin
CPT/HCPCS: 36415; 36600; 70450; 71045; 71046; 80048; 80053; 81001; 82140; 82550; 82553; 82803; 82947; 83605; 83735; 84145; 84484; 85025; 85610; 87040; 87077; 87086; 87186; 90686; 92610; 93005; 93010; 93306; 94640; 94660; 94762; 96374; 96375; 97110; 97116; 97162; 97530; 99285-25; A9270; G0480; J0696; J1170; J1650; J1953; J2060; J2405; J3475; J3480; J7030; J7042; J7050; U0004

== ENCOUNTER → 2021-05-08 | Outpatient (CLI) | payer OTHER ==
[~2021-05-08] MED LIST changes: +IPRAT-ALBUT 0.5-3 ML INH; +MEDIHONEY TOP; +MIRALAX17 GM PO
[2021-05-08 12:22] LABS: BASOPHILS ABSOLUTE AUTO 0.01 K/mm3 (0.00-0.23); BASOPHILS PERCENT AUTO 0 % (0-2); EOSINOPHILS PERCENT AUTO 0 % (0-6); Hematocrit 37.7 % (33.0-51.0); Hemoglobin 12.2 g/dL (11.5-16.0); IMMATURE GRAN ABSOLUTE AUTO 0.03 K/mm3 (0.00-0.10); IMMATURE GRAN PERCENT AUTO 0 % (0-1); LYMPHOCYTES PERCENT AUTO 15 % (21-46); MONOCYTES ABSOLUTE AUTO 0.73 K/mm3 (0.16-1.47); MONOCYTES PERCENT AUTO 9 % (4-13); Mean Corpuscular HGB 31.3 pg (26.0-34.0); Mean Corpuscular HGB Conc 32.4 g/dL (31.5-36.5); Mean Corpuscular Volume 97 fL (80-100); Mean Platelet Volume 9.4 fL (9.1-12.4); NEUTROPHILS ABSOLUTE AUTO 6.12 K/mm3 (1.96-9.15); NEUTROPHILS PERCENT AUTO 76 % (41-73); Platelet Count 277 K/mm3 (150-400); RDW Coefficient Variation 13.6 % (11.7-14.2); RDW Standard Deviation 48.5 fL (35.1-46.3); White Blood Cell Count 8.09 K/mm3 (4.00-11.30)
[2021-05-08 12:27] LABS: Alanine Aminotransfer (ALT/SGP 17 U/L (12-78); Albumin, Blood 3.3 g/dL (3.4-5.0); Albumin/Globulin Ratio 0.9 (0.8-1.8); Alk Phos 98 U/L (50-136); Anion Gap 5 mmol/L (6-16); Aspartate Aminotrans (AST/SGOT 17 U/L (12-37); Bilirubin, Total 0.4 mg/dL (0.1-1.0); Blood Urea Nitrogen 16 mg/dL (8-24); Bun/Creatinine Ratio 28.6 (12.0-20.0); CHOL/HDL RATIO 1.9; CO2, Blood 32 mmol/L (21-32); Calcium, Blood 9.3 mg/dL (8.5-10.1); Chloride, Blood 99 mmol/L (98-108); Cholesterol 127 mg/dL (50-200); Creatinine, Blood 0.56 mg/dL (0.40-1.00); Globulin, Blood 3.5 g/dL (2.2-4.0); Glomerular Filtration Rate >60 (60-); Glucose, Blood 102 mg/dL (70-99); HDL Cholesterol 66 mg/dL (>39); LDL/HDL RATIO 0.7; Low Density Lipoprotein Chol 44 mg/dL (0-110); Potassium, Blood 4.6 mmol/L (3.5-5.5); Sodium, Blood 136 mmol/L (136-145); Total Protein, Blood 6.8 g/dL (6.4-8.2); Triglycerides 86 mg/dL (30-160); Very Low Density Lipoprot Chol 17 mg/dL (6-32)
[2021-05-08 12:50] LABS: Microalb/Creat Ratio UR, Rand 17.273 mg/g (0.000-30.000)
== END | disposition home or self-care (01) ==
LOC: LAB SHORT 11:21
PROVIDERS: Physician Assistant
DX: Z13.89 Encounter for screening for other disorder (principal); E11.9 Type 2 diabetes mellitus without complications; E55.9 Vitamin D deficiency, unspecified; E78.5 Hyperlipidemia, unspecified
CPT/HCPCS: 80053; 80061; 82043; 82306; 82570; 83036; 85025

== ENCOUNTER → 2021-06-26 | Outpatient (CLI) | payer OTHER ==
[2021-06-27 08:10] LABS: HEMOGLOBIN A1C 5.8 % (4.8-5.6)
[2021-06-27 09:10] LABS: CHOLESTEROL, TOTAL 139 mg/dL (100-199); HDL CHOLESTEROL 61 mg/dL (>39); LDL CHOLESTEROL CALC 61 mg/dL (0-99); TRIGLYCERIDES 89 mg/dL (0-149); VLDL CHOLESTEROL CAL 17 mg/dL (5-40)
== END ==
LOC: LAB SHORT 10:42
PROVIDERS: Physician Assistant
DX: R73.09 Other abnormal glucose (principal); I70.0 Atherosclerosis of aorta
CPT/HCPCS: 80061; 83036

== ENCOUNTER 2021-07-17 02:11 | Day surgery (SDC) | payer OTHER | END 2021-07-17 12:00 | disposition home or self-care (01) | LOC: WOUND 02:11 | DX: E11.622 Type 2 diabetes mellitus with other skin ulcer (principal); L97.512 Non-pressure chronic ulcer of other part of right foot with fat layer exposed; F17.200 Nicotine dependence, unspecified, uncomplicated; I70.0 Atherosclerosis of aorta; E11.51 Type 2 diabetes mellitus with diabetic peripheral angiopathy without gangrene; Z80.0 Family history of malignant neoplasm of digestive organs; J44.9 Chronic obstructive pulmonary disease, unspecified | CPT/HCPCS: A9270; G0463 ==

== ENCOUNTER 2021-07-31 00:51 | Day surgery (SDC) | payer OTHER | END 2021-07-31 23:59 | disposition home or self-care (01) | LOC: WOUND 00:51 | DX: E11.621 Type 2 diabetes mellitus with foot ulcer (principal); L97.512 Non-pressure chronic ulcer of other part of right foot with fat layer exposed; S91.301A Unspecified open wound, right foot, initial encounter; J44.9 Chronic obstructive pulmonary disease, unspecified; I70.0 Atherosclerosis of aorta; E11.622 Type 2 diabetes mellitus with other skin ulcer; E11.51 Type 2 diabetes mellitus with diabetic peripheral angiopathy without gangrene; Z72.0 Tobacco use | CPT/HCPCS: A9270 ==

== ENCOUNTER 2021-08-07 01:14 | Day surgery (SDC) | payer OTHER | END 2021-08-07 23:04 | disposition home or self-care (01) | LOC: WOUND 01:14 | DX: E11.621 Type 2 diabetes mellitus with foot ulcer (principal); L97.512 Non-pressure chronic ulcer of other part of right foot with fat layer exposed; I70.0 Atherosclerosis of aorta; E11.51 Type 2 diabetes mellitus with diabetic peripheral angiopathy without gangrene; Z72.0 Tobacco use; J44.9 Chronic obstructive pulmonary disease, unspecified | CPT/HCPCS: A9270; G0463 ==

== ENCOUNTER 2021-08-14 00:28 | Day surgery (SDC) | payer OTHER | END 2021-08-14 23:59 | disposition home or self-care (01) | LOC: WOUND 00:28 | DX: E11.621 Type 2 diabetes mellitus with foot ulcer (principal); L97.512 Non-pressure chronic ulcer of other part of right foot with fat layer exposed; I70.0 Atherosclerosis of aorta; E11.51 Type 2 diabetes mellitus with diabetic peripheral angiopathy without gangrene; J44.9 Chronic obstructive pulmonary disease, unspecified; F17.200 Nicotine dependence, unspecified, uncomplicated; Z99.81 Dependence on supplemental oxygen | CPT/HCPCS: A9270; G0463 ==

== ENCOUNTER 2021-08-21 02:31 | Day surgery (SDC) | payer OTHER | END 2021-08-21 23:30 | disposition home or self-care (01) | LOC: WOUND 02:31 | DX: E11.622 Type 2 diabetes mellitus with other skin ulcer (principal); L97.812 Non-pressure chronic ulcer of other part of right lower leg with fat layer exposed; E11.51 Type 2 diabetes mellitus with diabetic peripheral angiopathy without gangrene; I70.0 Atherosclerosis of aorta; Z72.0 Tobacco use | CPT/HCPCS: A9270; G0463 ==

== ENCOUNTER 2021-09-09 01:26 | Day surgery (SDC) | payer OTHER | END 2021-09-09 23:23 | disposition home or self-care (01) | LOC: WOUND 01:26 | DX: E11.622 Type 2 diabetes mellitus with other skin ulcer (principal); L97.312 Non-pressure chronic ulcer of right ankle with fat layer exposed; S91.301D Unspecified open wound, right foot, subsequent encounter; I70.0 Atherosclerosis of aorta; E11.51 Type 2 diabetes mellitus with diabetic peripheral angiopathy without gangrene; F17.200 Nicotine dependence, unspecified, uncomplicated; J44.9 Chronic obstructive pulmonary disease, unspecified; Z99.81 Dependence on supplemental oxygen | CPT/HCPCS: G0463 ==

== ENCOUNTER 2021-09-23 03:18 | Day surgery (SDC) | payer OTHER | END 2021-09-23 23:23 | disposition home or self-care (01) | LOC: WOUND 03:18 | DX: Z09 Encounter for follow-up examination after completed treatment for conditions other than malignant neoplasm (principal); Z86.31 Personal history of diabetic foot ulcer; I70.0 Atherosclerosis of aorta; R73.09 Other abnormal glucose; F17.200 Nicotine dependence, unspecified, uncomplicated; E11.51 Type 2 diabetes mellitus with diabetic peripheral angiopathy without gangrene; J44.9 Chronic obstructive pulmonary disease, unspecified; Z99.81 Dependence on supplemental oxygen | CPT/HCPCS: A9270; G0463 ==

== ENCOUNTER 2022-03-25 11:28 | Emergency (ER) | payer OTHER ==
[~2022-03-25] VITALS: Ht 167.6 cm; Wt 72.6 kg
[2022-03-25 12:35] LABS: Albumin, Blood 3.2 g/dL (3.4-5.0); Albumin/Globulin Ratio 0.9 (0.8-1.8); Bilirubin, Total 0.4 mg/dL (0.1-1.0); Bun/Creatinine Ratio 17.3 (12.0-20.0); Calcium, Blood 8.9 mg/dL (8.5-10.1); Creatinine, Blood 0.52 mg/dL (0.40-1.00); Globulin, Blood 3.4 g/dL (2.2-4.0); Potassium, Blood 4.4 mmol/L (3.5-5.5); Total Protein, Blood 6.6 g/dL (6.4-8.2)
[2022-03-25 12:36] LABS: BASOPHILS ABSOLUTE AUTO 0.01 K/mm3 (0.00-0.23); BASOPHILS PERCENT AUTO 0 % (0-2); EOSINOPHILS PERCENT AUTO 0 % (0-6); Hematocrit 34.1 % (33.0-51.0); Hemoglobin 11.3 g/dL (11.5-16.0); IMMATURE GRAN ABSOLUTE AUTO 0.02 K/mm3 (0.00-0.10); IMMATURE GRAN PERCENT AUTO 0 % (0-1); LYMPHOCYTES PERCENT AUTO 20 % (21-46); MONOCYTES ABSOLUTE AUTO 0.69 K/mm3 (0.16-1.47); MONOCYTES PERCENT AUTO 11 % (4-13); Mean Corpuscular HGB 31.4 pg (26.0-34.0); Mean Corpuscular HGB Conc 33.1 g/dL (31.5-36.5); Mean Corpuscular Volume 95 fL (80-100); NEUTROPHILS ABSOLUTE AUTO 4.57 K/mm3 (1.96-9.15); NEUTROPHILS PERCENT AUTO 69 % (41-73); Platelet Count 240 K/mm3 (150-400); RDW Coefficient Variation 13.5 % (11.7-14.2); RDW Standard Deviation 47.6 fL (35.1-46.3); White Blood Cell Count 6.59 K/mm3 (4.00-11.30)
[2022-03-25 12:38] LABS: Source, Urine Straight Cath
[2022-03-25 13:05] LABS: Appearance, Urine Clear (Clear); Bilirubin, Urine Neg (Neg); Blood, Urine Neg (Neg); Glucose Qualitative, Urine Neg (Neg); Ketones, Urine Neg (Neg); Leukocyte Esterase, Urine Neg (Neg); Nitrite, Urine Neg (Neg); Protein, Urine Neg (Neg); Urobilinogen, Urine NORM (Normal)
[2022-03-25 13:21] LABS: Color, Urine Pale Yellow (P-Yellow)
[2022-03-25 13:46] LABS: Influenza A, PCR NEGATIVE (NEGATIVE); Influenza B, PCR NEGATIVE (NEGATIVE); Resp Syncytial Virus, PCR NEGATIVE (NEGATIVE); SARS-Cov-2 (COVID-19) PCR, MMC NEGATIVE (NEGATIVE)
[2022-03-25] MEDS ORDERED: AZIT250 PO (14:56)
[2022-03-25] MEDS ORDERED: PRED20 PO (14:56)
== END 2022-03-25 16:35 | disposition home or self-care (01) ==
LOC: ER 11:28
PROVIDERS: Student in an Organized Health Care Education/Training Program
DX: J44.1 Chronic obstructive pulmonary disease with (acute) exacerbation (principal); F17.200 Nicotine dependence, unspecified, uncomplicated; Z20.822 Contact with and (suspected) exposure to COVID-19; Z88.0 Allergy status to penicillin; Z79.899 Other long term (current) drug therapy
CPT/HCPCS: 0241U; 71046; 80053; 81003; 83735; 83880; 84484; 85025; 93005; 93010; 94640; 94644; 94664; A9270; J1885; J7512

== ENCOUNTER 2022-04-04 17:50 | Emergency (ER) | payer OTHER ==
[~2022-04-04] VITALS: Ht 167.6 cm; Wt 72.6 kg
[~2022-04-04 17:50] MED LIST changes: +AZIT250 PO; +PRED20 PO
[2022-04-04 18:15] LABS: BASOPHILS ABSOLUTE AUTO 0.01 K/mm3 (0.00-0.23); BASOPHILS PERCENT AUTO 0 % (0-2); EOSINOPHILS ABSOLUTE AUTO 0.01 K/mm3 (0.00-0.68); EOSINOPHILS PERCENT AUTO 0 % (0-6); Hematocrit 37.9 % (33.0-51.0); Hemoglobin 12.1 g/dL (11.5-16.0); IMMATURE GRAN ABSOLUTE AUTO 0.04 K/mm3 (0.00-0.10); IMMATURE GRAN PERCENT AUTO 0 % (0-1); LYMPHOCYTES ABSOLUTE AUTO 1.41 K/mm3 (0.84-5.20); LYMPHOCYTES PERCENT AUTO 12 % (21-46); MONOCYTES ABSOLUTE AUTO 1.08 K/mm3 (0.16-1.47); MONOCYTES PERCENT AUTO 9 % (4-13); Mean Corpuscular HGB 31.5 pg (26.0-34.0); Mean Corpuscular HGB Conc 31.9 g/dL (31.5-36.5); Mean Corpuscular Volume 99 fL (80-100); Mean Platelet Volume 8.6 fL (9.1-12.4); NEUTROPHILS ABSOLUTE AUTO 8.94 K/mm3 (1.96-9.15); NEUTROPHILS PERCENT AUTO 78 % (41-73); Platelet Count 251 K/mm3 (150-400); RDW Coefficient Variation 13.9 % (11.7-14.2); RDW Standard Deviation 50.2 fL (35.1-46.3); Red Blood Cell Count 3.84 M/mm3 (3.80-5.20); White Blood Cell Count 11.49 K/mm3 (4.00-11.30)
[2022-04-04 18:34] LABS: Albumin, Blood 3.5 g/dL (3.4-5.0); Albumin/Globulin Ratio 1.1 (0.8-1.8); Bilirubin, Total 0.2 mg/dL (0.1-1.0); Bun/Creatinine Ratio 25.9 (12.0-20.0); Calcium, Blood 9.2 mg/dL (8.5-10.1); Creatinine, Blood 0.46 mg/dL (0.40-1.00); Globulin, Blood 3.2 g/dL (2.2-4.0); Potassium, Blood 4.3 mmol/L (3.5-5.5); Total Protein, Blood 6.7 g/dL (6.4-8.2)
[2022-04-04] MEDS ORDERED: OXYB5 PO (18:48)
[2022-04-04] MEDS ORDERED: AZIT250 PO (20:17)
[2022-04-04] MEDS ORDERED: Guaifenesin Wit10 ML PO (20:17)
[2022-04-04] MEDS ORDERED: PRED20 PO (20:17)
== END 2022-04-04 22:59 | disposition home or self-care (01) ==
LOC: ER 17:50
PROVIDERS: Emergency Medicine
DX: J44.1 Chronic obstructive pulmonary disease with (acute) exacerbation (principal); F17.200 Nicotine dependence, unspecified, uncomplicated; Z79.899 Other long term (current) drug therapy
CPT/HCPCS: 71045; 80053; 83880; 84484; 85025; 93005; 93010; 94644; 94664; 96374; 99285-25; A9270; J2930

== ENCOUNTER → 2022-04-24 | Outpatient (CLI) | payer OTHER ==
[~2022-04-24] MED LIST changes: +Guaifenesin Wit10 ML PO
[2022-04-24 14:50] LABS: BASOPHILS ABSOLUTE AUTO 0.01 K/mm3 (0.00-0.23); BASOPHILS PERCENT AUTO 0 % (0-2); EOSINOPHILS ABSOLUTE AUTO 0.01 K/mm3 (0.00-0.68); EOSINOPHILS PERCENT AUTO 0 % (0-6); Hematocrit 43.3 % (33.0-51.0); Hemoglobin 13.8 g/dL (11.5-16.0); IMMATURE GRAN ABSOLUTE AUTO 0.02 K/mm3 (0.00-0.10); IMMATURE GRAN PERCENT AUTO 0 % (0-1); LYMPHOCYTES PERCENT AUTO 12 % (21-46); MONOCYTES ABSOLUTE AUTO 0.99 K/mm3 (0.16-1.47); MONOCYTES PERCENT AUTO 10 % (4-13); Mean Corpuscular HGB 31.7 pg (26.0-34.0); Mean Corpuscular HGB Conc 31.9 g/dL (31.5-36.5); Mean Corpuscular Volume 99 fL (80-100); Mean Platelet Volume 8.8 fL (9.1-12.4); NEUTROPHILS ABSOLUTE AUTO 8.15 K/mm3 (1.96-9.15); NEUTROPHILS PERCENT AUTO 79 % (41-73); Platelet Count 345 K/mm3 (150-400); RDW Coefficient Variation 13.9 % (11.7-14.2); RDW Standard Deviation 51.1 fL (35.1-46.3); Red Blood Cell Count 4.36 M/mm3 (3.80-5.20); White Blood Cell Count 10.38 K/mm3 (4.00-11.30)
[2022-04-24 15:03] LABS: Alanine Aminotransfer (ALT/SGP 22 U/L (12-78); Alk Phos 135 U/L (40-126); Anion Gap Unable to Calculate mmol/L (6-16); Aspartate Aminotrans (AST/SGOT 24 U/L (12-37); Bilirubin, Total 0.6 mg/dL (0.1-1.0); Blood Urea Nitrogen 14 mg/dL (8-24); Bun/Creatinine Ratio 20.9 (12.0-20.0); CO2, Blood 44 mmol/L (21-32); Calcium, Blood 9.6 mg/dL (8.5-10.1); Chloride, Blood 90 mmol/L (98-108); Creatinine, Blood 0.67 mg/dL (0.40-1.00); Glomerular Filtration Rate 95 (60-); Glucose, Blood 115 mg/dL (70-99); Potassium, Blood 4.9 mmol/L (3.5-5.5); Sodium, Blood 133 mmol/L (136-145)
== END | disposition home or self-care (01) ==
LOC: LAB 14:46 → LAB SHORT 14:46
PROVIDERS: Chiropractor
DX: R07.9 Chest pain, unspecified (principal)
CPT/HCPCS: 80053; 84484; 85025; 85379

== ENCOUNTER 2022-04-30 03:51 | Inpatient (IN) | payer OTHER ==
[~2022-04-30] VITALS: Ht 167.6 cm; Wt 70.7 kg
[2022-04-30 04:49] LABS: BASOPHILS ABSOLUTE AUTO 0.01 K/mm3 (0.00-0.23); BASOPHILS PERCENT AUTO 0 % (0-2); EOSINOPHILS PERCENT AUTO 0 % (0-6); Hematocrit 38.5 % (33.0-51.0); Hemoglobin 11.8 g/dL (11.5-16.0); IMMATURE GRAN ABSOLUTE AUTO 0.02 K/mm3 (0.00-0.10); IMMATURE GRAN PERCENT AUTO 0 % (0-1); LYMPHOCYTES ABSOLUTE AUTO 1.25 K/mm3 (0.84-5.20); LYMPHOCYTES PERCENT AUTO 17 % (21-46); MONOCYTES ABSOLUTE AUTO 0.92 K/mm3 (0.16-1.47); MONOCYTES PERCENT AUTO 12 % (4-13); Mean Corpuscular HGB 31.1 pg (26.0-34.0); Mean Corpuscular HGB Conc 30.6 g/dL (31.5-36.5); Mean Corpuscular Volume 102 fL (80-100); Mean Platelet Volume 8.9 fL (9.1-12.4); NEUTROPHILS ABSOLUTE AUTO 5.21 K/mm3 (1.96-9.15); NEUTROPHILS PERCENT AUTO 70 % (41-73); Platelet Count 243 K/mm3 (150-400); RDW Coefficient Variation 13.7 % (11.7-14.2); RDW Standard Deviation 51.6 fL (35.1-46.3); Red Blood Cell Count 3.79 M/mm3 (3.80-5.20); White Blood Cell Count 7.41 K/mm3 (4.00-11.30)
[2022-04-30 05:25] LABS: Albumin, Blood 3.6 g/dL (3.4-5.0); Albumin/Globulin Ratio 1.1 (0.8-1.8); Bilirubin, Total 0.3 mg/dL (0.1-1.0); Bun/Creatinine Ratio 28.6 (12.0-20.0); Calcium, Blood 9.4 mg/dL (8.5-10.1); Creatinine, Blood 0.52 mg/dL (0.40-1.00); Globulin, Blood 3.4 g/dL (2.2-4.0); Potassium, Blood 3.8 mmol/L (3.5-5.5)
[2022-04-30 05:48] LABS: Influenza A, PCR NEGATIVE (NEGATIVE); Influenza B, PCR NEGATIVE (NEGATIVE); Resp Syncytial Virus, PCR NEGATIVE (NEGATIVE); SARS-Cov-2 (COVID-19) PCR, MMC NEGATIVE (NEGATIVE)
[2022-04-30] MEDS ORDERED: ACET325 PO (07:06)
[2022-04-30] MEDS ORDERED: ALBU3IS INH (07:08)
[2022-04-30] MEDS ORDERED: Iprat-Albut 0.5-3(2. INH (07:09)
[2022-04-30] MEDS ORDERED: MOBIC15 MG PO (07:11)
[2022-04-30] MEDS ORDERED: OMEP20ER PO (07:12)
[2022-04-30] MEDS ORDERED: OXYB5 PO (07:13)
[2022-04-30] MEDS ORDERED: RISP4 PO (07:15)
[2022-04-30] MEDS ORDERED: SIMETHICONE125 MG PO (07:16)
[2022-04-30] MEDS ORDERED: TRAM50 PO (07:17)
--- NOTE | 2022-04-30 15:53 | NUR ---
report from gillian viveros rn, patient to be brought up to the floor
[2022-05-01 04:46] LABS: BASOPHILS PERCENT AUTO 0 % (0-2); EOSINOPHILS PERCENT AUTO 0 % (0-6); Hemoglobin 12.3 g/dL (11.5-16.0); IMMATURE GRAN ABSOLUTE AUTO 0.03 K/mm3 (0.00-0.10); IMMATURE GRAN PERCENT AUTO 0 % (0-1); LYMPHOCYTES ABSOLUTE AUTO 0.38 K/mm3 (0.84-5.20); LYMPHOCYTES PERCENT AUTO 4 % (21-46); MONOCYTES ABSOLUTE AUTO 0.34 K/mm3 (0.16-1.47); MONOCYTES PERCENT AUTO 4 % (4-13); Mean Corpuscular HGB 31.5 pg (26.0-34.0); Mean Corpuscular HGB Conc 32.4 g/dL (31.5-36.5); Mean Platelet Volume 8.9 fL (9.1-12.4); NEUTROPHILS ABSOLUTE AUTO 8.24 K/mm3 (1.96-9.15); NEUTROPHILS PERCENT AUTO 92 % (41-73); Platelet Count 240 K/mm3 (150-400); RDW Coefficient Variation 13.4 % (11.7-14.2); RDW Standard Deviation 48.1 fL (35.1-46.3); Red Blood Cell Count 3.91 M/mm3 (3.80-5.20); White Blood Cell Count 8.99 K/mm3 (4.00-11.30)
[2022-05-01 04:47] LABS: Mean Corpuscular Volume 97 fL (80-100)
[2022-05-01 05:08] LABS: Albumin, Blood 3.4 g/dL (3.4-5.0); Bilirubin, Total 0.7 mg/dL (0.1-1.0); Bun/Creatinine Ratio 29.4 (12.0-20.0); Calcium, Blood 9.7 mg/dL (8.5-10.1); Creatinine, Blood 0.51 mg/dL (0.40-1.00); Globulin, Blood 3.4 g/dL (2.2-4.0); Potassium, Blood 4.3 mmol/L (3.5-5.5); Total Protein, Blood 6.8 g/dL (6.4-8.2)
--- NOTE | 2022-05-01 07:10 | NUR ---
SHIFT SUMMARY PATIENT ALERT AND ORIENTED. HAD NO COMPLAINTS OF PAIN. SHORT OF BREATH, TREATED BY RT. NO ACUTE ISSUES NOTED OVERNIGHT. CALL LIGHT WITHIN REACH. REPORT GIVEN TO ONCOMING RN.
--- NOTE | 2022-05-01 18:38 | NUR ---
MAKES NEEDS KNOWN, EASILY SOB, 4L O2 VIA NC, INCREASED TO 6L O2 WHEN WORKING WITH PT, PATIENT STILL DESATED TO 83%, RECOVERS EASILY, AT REST O2 AT 4L O2, LS COURSE, RHONCHI, UPPER AIRWAYS, EXP WHEEZES, SOB FROM TALKING, EATING, OR ACTIVITY. BS 130-190S, SOLUMEDROL SCHEDULED, RT TREATMENTS, PERIWICK IN PLACE, INCONTINENT OF STOOL, NO ACUTE CHANGES, PATIENT STATES SHE LIVES ALONE BUT HAS A RANGER AIDE AND A CAT, CALL LIGHT WITH IN REACH, WILL RELAY TO PM ASTRID
--- NOTE | 2022-05-02 05:56 | NUR ---
PT A/O X 3. PT HAD A FEW EPISODES OF HALLUCINATIONS IN WHICH PT REPORTED THAT THE ROOM WAS UPSIDE DOWN. DURING ONE EPISODE PT SPO2 WAS CHECKED AND IN MID 80'S AND O2 WAS TITRATED UP O 5L. PT HAD ANOTHER EPISODE AND SPO2 WAS 94% ON 5L. PT REPORTS THAT THESE EPISODES HAPPEN AT HOME SOMETIMES. OTHERWISE PT HAD STABLE VS AND WAS ALERT AND ORIENTED. PT IS CURRENTLY AWAKE WATCHING TV WITH BED RAIL UP, BED ALARM ON, BED IN LOWEST POSITION, AND CALL LIGHT WITHIN REACH.
[2022-05-02 06:52] LABS: Bun/Creatinine Ratio 40.8 (12.0-20.0); Calcium, Blood 9.8 mg/dL (8.5-10.1); Creatinine, Blood 0.47 mg/dL (0.40-1.00); Potassium, Blood 4.3 mmol/L (3.5-5.5)
--- NOTE | 2022-05-02 18:07 | NUR ---
ALERT AND OREINTED, MINIMAL CONFUSION TODAY, REGULARLY REEDUCATED ON INTERVENTIONS AND MEDICATIONS, ATTENDS ON, PERIWIK IN PLACE, O2 VIA NC 5L, PATIENT HAS HOME PROVIDERS THAT HER PRIMARY DOCTOR IS TRYING TO INCREASE TO DAILY CARE, REPOSITIONS IN BED, SOB INCREASES AND DESATS TO 83% WHEN STANDING, RECOVERS EASILY, CALL LIGHT WITH IN REACH, WILL RELAY TO PM RN
--- NOTE | 2022-05-03 03:53 | NUR ---
SHIFT SUMMARY NOC PT A/OX3-4. SOME MILD CONFUSION ON AWAKENING BUT QUICKLY REORIENTS. PT ON O2 5L/NC SPO2 94%. NO HYPOXIC DELERIUM EPISODES LAST NIGHT. PT STILL HAS PUREWICK DRAINING CLEAR YELLOW URINE TO SUCTION WITH ATTENDS IN PLACE. NO ACUTE CHANGES. PT CURRENTLY RESTING WITH BED RAILS UP, BED IN LOWEST POSITION, AND CALL LIGHT WITHIN REACH.
[2022-05-03 04:59] LABS: BASOPHILS ABSOLUTE AUTO 0.02 K/mm3 (0.00-0.23); BASOPHILS PERCENT AUTO 0 % (0-2); EOSINOPHILS ABSOLUTE AUTO 0.01 K/mm3 (0.00-0.68); EOSINOPHILS PERCENT AUTO 0 % (0-6); Hematocrit 39.1 % (33.0-51.0); Hemoglobin 12.9 g/dL (11.5-16.0); IMMATURE GRAN ABSOLUTE AUTO 0.11 K/mm3 (0.00-0.10); IMMATURE GRAN PERCENT AUTO 1 % (0-1); LYMPHOCYTES PERCENT AUTO 4 % (21-46); MONOCYTES ABSOLUTE AUTO 0.66 K/mm3 (0.16-1.47); MONOCYTES PERCENT AUTO 5 % (4-13); Mean Corpuscular Volume 94 fL (80-100); Mean Platelet Volume 8.6 fL (9.1-12.4); NEUTROPHILS ABSOLUTE AUTO 12.39 K/mm3 (1.96-9.15); NEUTROPHILS PERCENT AUTO 91 % (41-73); Platelet Count 219 K/mm3 (150-400); RDW Coefficient Variation 13.4 % (11.7-14.2); RDW Standard Deviation 46.7 fL (35.1-46.3); Red Blood Cell Count 4.16 M/mm3 (3.80-5.20); White Blood Cell Count 13.69 K/mm3 (4.00-11.30)
[2022-05-03 05:17] LABS: Calcium, Blood 9.5 mg/dL (8.5-10.1); Creatinine, Blood 0.49 mg/dL (0.40-1.00); Potassium, Blood 4.5 mmol/L (3.5-5.5)
--- NOTE | 2022-05-03 13:40 | NUR ---
Upon receiving a referral for spiritual care, I visit pt. Pt talks abut her COPD and her desire to quit smoking. We discuss different avenues to approach quitting but pt insists that she just has to do it "cold turkey." We also talk about her family and her 10 other brothers and sisters. We talk about the loss of so many of them. When I asked pt about her spiritual beliefs pt states that she believes that her mother and father are watching over her and guiding her and that is her chandrakant. She also says that it is her cat, May, that inspires her. I reinforce helpful attitudes and perspectives and provide therapeutic listening and grief support. Pt responds well and shows signs of greater peace. I will continue to remain available to patient and family.
--- NOTE | 2022-05-03 19:30 | NUR ---
SHIFT SUMMARY PATINT ALERT AND ORIENTED THIS SHIFT. GENERALLY WEAK, WEANED O2 TO BASELINE OF 4L NC. SBA UP TO CHAIR AND BSC WITH FWW. PLAN TO CONTINUE PHYSICAL THERAPY UNTIL MEDICALLY STABLE FOR DISCHARGE. TOLERATING ADA DIET AND LIQUIDS. VOIDING WELL, BM THIS SHIFT. REPORT GIVEN TO MANAGER WINTER RN.
--- NOTE | 2022-05-04 04:45 | NUR ---
RIPRAP PLACING SUPERVISOR SUMMARY NO ACUTE CHANGES. PT WAKEFUL T/O THE NIGHT. PT ABLE TO ADVOCATE F/NEEDS; REQUESTED BREATHING TREATMENTS. PT REPORTING FEELING SOB; RT RESPONDED. PT CONT W/4L HUMIDIFIED O2 NC. PT GOOD APPETITE. PURE WICK IN PLACE DURING THE NIGHT. FALL PRECAUTIONS IN PLACE; ALARM SET F/BED AND/OR CHAIR. CALL LIGHT IN REACH.
[2022-05-04] MEDS ORDERED: PRAVASTATIN SOD10 MG PO (05:52)
[2022-05-04] MEDS ORDERED: MELO7.5 PO (05:54)
[2022-05-04] MEDS ORDERED: Ventolin/Prove6.7 GM INH (05:54)
[2022-05-04] MEDS ORDERED: AZIT250 PO (05:56)
[2022-05-04] MEDS ORDERED: PRED20 PO (13:10)
--- NOTE | 2022-05-04 15:50 | NUR ---
DISCHARGE PT A&OX4 @ TIME OF DC. TRANSPORT PROVIDED HOME W/ PORTABLE O2 PROVIDED TO ESCALATOR CONSTRUCTOR. MEDS FAXED INTO [facility]. TOLERATING PO INTAKE. VSS. IV DCED BY AIRCRAFT ORDNANCE TECHNICIAN
== END 2022-05-04 15:37 | disposition home health service (06) | DRG 189 ==
LOC: ER 03:51 → ERHOLD 03:52 → ER 03:52 → MEDS 03:52 → ERHOLD 03:52 → MEDS 16:05 → ERHOLD 16:05 → MEDS 05-01 15:43
PROVIDERS: Student in an Organized Health Care Education/Training Program; ADMIT Internal Medicine
DX: J96.21 Acute and chronic respiratory failure with hypoxia (principal); J44.1 Chronic obstructive pulmonary disease with (acute) exacerbation; J84.9 Interstitial pulmonary disease, unspecified; E87.1 Hypo-osmolality and hyponatremia; F41.9 Anxiety disorder, unspecified; F31.9 Bipolar disorder, unspecified; K21.9 Gastro-esophageal reflux disease without esophagitis; E78.5 Hyperlipidemia, unspecified; F20.9 Schizophrenia, unspecified; F17.210 Nicotine dependence, cigarettes, uncomplicated; E11.9 Type 2 diabetes mellitus without complications; N39.3 Stress incontinence (female) (male); F10.10 Alcohol abuse, uncomplicated; Z20.822 Contact with and (suspected) exposure to COVID-19; M54.9 Dorsalgia, unspecified; Z23 Encounter for immunization; Z99.81 Dependence on supplemental oxygen; Z98.890 Other specified postprocedural states; Z88.0 Allergy status to penicillin; Z79.899 Other long term (current) drug therapy; Z79.51 Long term (current) use of inhaled steroids; Z79.891 Long term (current) use of opiate analgesic; Z71.6 Tobacco abuse counseling
CPT/HCPCS: 0241U; 36415; 71045; 80048; 80053; 82947; 83036; 83880; 84484; 85025; 85379; 87040; 90686; 93005; 93010; 94640; 94664; 94760; 96372; 96374; 97110; 97162; 97166; 97530; 97535; 99285-25; A9270; G0008; G0378; J1650; J2920

== ENCOUNTER 2022-05-15 19:04 | Inpatient (IN) | payer OTHER ==
[~2022-05-15] VITALS: Ht 167.6 cm; Wt 64.5 kg
[~2022-05-15 19:04] MED LIST changes: +ACET325 PO; +ALBU3IS INH; +Iprat-Albut 0.5-3(2. INH; +MELO7.5 PO; +MOBIC15 MG PO; +PRAVASTATIN SOD10 MG PO; +RISP4 PO; +SIMETHICONE125 MG PO; +TRAM50 PO; +Ventolin/Prove6.7 GM INH
[2022-05-15 20:15] LABS: Albumin/Globulin Ratio 0.9 (0.8-1.8); Bilirubin, Total 0.4 mg/dL (0.1-1.0); Bun/Creatinine Ratio 26.1 (12.0-20.0); Calcium, Blood 8.2 mg/dL (8.5-10.1); Creatinine, Blood 0.46 mg/dL (0.40-1.00); Globulin, Blood 3.3 g/dL (2.2-4.0); Potassium, Blood 4.4 mmol/L (3.5-5.5); Total Protein, Blood 6.3 g/dL (6.4-8.2)
[2022-05-15 20:20] LABS: BASOPHILS ABSOLUTE AUTO 0.02 K/mm3 (0.00-0.23); BASOPHILS PERCENT AUTO 0 % (0-2); EOSINOPHILS ABSOLUTE AUTO 0.01 K/mm3 (0.00-0.68); EOSINOPHILS PERCENT AUTO 0 % (0-6); Hematocrit 33.5 % (33.0-51.0); Hemoglobin 11.3 g/dL (11.5-16.0); IMMATURE GRAN ABSOLUTE AUTO 0.05 K/mm3 (0.00-0.10); IMMATURE GRAN PERCENT AUTO 0 % (0-1); LYMPHOCYTES ABSOLUTE AUTO 0.66 K/mm3 (0.84-5.20); LYMPHOCYTES PERCENT AUTO 6 % (21-46); MONOCYTES ABSOLUTE AUTO 0.77 K/mm3 (0.16-1.47); MONOCYTES PERCENT AUTO 6 % (4-13); Mean Corpuscular HGB 31.9 pg (26.0-34.0); Mean Corpuscular HGB Conc 33.7 g/dL (31.5-36.5); Mean Corpuscular Volume 95 fL (80-100); Mean Platelet Volume 8.3 fL (9.1-12.4); NEUTROPHILS ABSOLUTE AUTO 10.55 K/mm3 (1.96-9.15); NEUTROPHILS PERCENT AUTO 87 % (41-73); Platelet Count 171 K/mm3 (150-400); RDW Coefficient Variation 13.8 % (11.7-14.2); RDW Standard Deviation 48.2 fL (35.1-46.3); Red Blood Cell Count 3.54 M/mm3 (3.80-5.20); White Blood Cell Count 12.06 K/mm3 (4.00-11.30)
[2022-05-16 05:52] LABS: Bun/Creatinine Ratio 30.5 (12.0-20.0); Calcium, Blood 8.7 mg/dL (8.5-10.1); Creatinine, Blood 0.39 mg/dL (0.40-1.00); Potassium, Blood 4.9 mmol/L (3.5-5.5)
[2022-05-16 08:03] LABS: Bicarbonate Venous 36.5 mmol/L (24.0-30.0); PCO2 Venous 68.5 mmHg (38-42); pH Blood Venous 7.38 (7.34-7.37)
[2022-05-16 08:04] LABS: Base Excess Venous 15.3 mmol/L
--- NOTE | 2022-05-16 18:44 | NUR ---
END OF SHIFT: NO ASSESSMENT CHANGES FROM ASSUMPTION OF CARE. OF NOTE PATIENT DID HAVE AN EPISODE OF NAUSEA AND VOMITTING WHILE TAKING A BREAK FROM THE BIPAP AFTER EATING. STILL DENIES CHEST PAIN SOB PRESSURE. NO ACUTE SIGN OF DISTRESS AT THIS TIME. MILDLY HYPERTENSIVE WILL CONTINUE TO MONITOR UNTIL SHIFT CHANGE.
[2022-05-17 05:08] LABS: BASOPHILS ABSOLUTE AUTO 0.01 K/mm3 (0.00-0.23); BASOPHILS PERCENT AUTO 0 % (0-2); EOSINOPHILS PERCENT AUTO 0 % (0-6); Hematocrit 33.9 % (33.0-51.0); Hemoglobin 11.2 g/dL (11.5-16.0); IMMATURE GRAN ABSOLUTE AUTO 0.08 K/mm3 (0.00-0.10); IMMATURE GRAN PERCENT AUTO 1 % (0-1); LYMPHOCYTES ABSOLUTE AUTO 0.28 K/mm3 (0.84-5.20); LYMPHOCYTES PERCENT AUTO 2 % (21-46); MONOCYTES ABSOLUTE AUTO 0.45 K/mm3 (0.16-1.47); MONOCYTES PERCENT AUTO 3 % (4-13); Mean Corpuscular HGB 31.1 pg (26.0-34.0); Mean Corpuscular Volume 94 fL (80-100); Mean Platelet Volume 8.8 fL (9.1-12.4); NEUTROPHILS ABSOLUTE AUTO 14.29 K/mm3 (1.96-9.15); NEUTROPHILS PERCENT AUTO 95 % (41-73); Platelet Count 187 K/mm3 (150-400); RDW Coefficient Variation 13.5 % (11.7-14.2); RDW Standard Deviation 46.5 fL (35.1-46.3); White Blood Cell Count 15.11 K/mm3 (4.00-11.30)
--- NOTE | 2022-05-17 05:11 | NUR ---
SHIFT SUMMARY PT A&Ox3, CALLS AND COMMUNICATES NEEDS APPROPRIATELY. APPROPRIATELY STATES WHERE SHE IS AND WHAT DAY IT IS, SHE IS A POOR HISTORIAN. VSS, BP STABLE, SINUS 60-90'w WITH PAC's & PVC's. DENIES CP/PRESSURE. SpO2> 92% ON 4L VIA NC WHILE AWAKE AND BiPAP WITH 4-6L BLEED IN WHILE ASLEEP. DENIES SOB. PUREWICK IN PLACE, PATENT. NO ACUTE EVENTS THIS SHIFT, WILL REPORT TO ONCOMING RN.
[2022-05-17 05:23] LABS: Bun/Creatinine Ratio 29.9 (12.0-20.0); Calcium, Blood 8.7 mg/dL (8.5-10.1); Creatinine, Blood 0.44 mg/dL (0.40-1.00); Potassium, Blood 4.3 mmol/L (3.5-5.5)
[2022-05-17] MEDS ORDERED: PRED20 PO (14:48)
--- NOTE | 2022-05-17 17:54 | NUR ---
DISHCARGE SUMMARY: PATIENT HAS BEEN ANXIOUS WITH CALL LIGHT, BUT ANXIOUS TO GET HOME. 2+ HOURS THROUGH THE DAY OF EDUCATION OF CURRENLT ILLNESS, DISCHARGE PLAN, MEDICATIONS. PATIIENT HAS A MODERATE BASELINE OF UNDERSTANDING WITH ASSISTANCE, DENEIS CHEST PAIN OR PRESSURE RELATED TO HER HEART. HAS BEEN COUGHING QUITE FREQUENTLY AND HAS PLEURAL PAIN AND RIB PAIN FROM COUGHING. SPO2 ON BASELINE 4L IS 95% TYPICALLY, MAY NEED MORE AT TIMES OF EXERTION BUT RECOVERS QUICKLY. PATIENT HAS BEEN ALERT AND ORIENTED. UNDERSTOOD DISCHARGE INSTRUCTIONS COMPLETELY AND WAS TRANSPORTED BY AMBULANCE SERVICES VIA . NO CONCERNS FROM THIS RN OR PATIENT AT THIS TIME.
== END 2022-05-17 18:05 | disposition home or self-care (01) | DRG 189 ==
LOC: ER 19:04 → PCU 05-16 00:34 → ERHOLD 05-16 00:34 → PCU 05-16 11:13
PROVIDERS: Internal Medicine; Student in an Organized Health Care Education/Training Program; ADMIT Internal Medicine
PROC: 5A09357 Assistance with Respiratory Ventilation, Less than 24 Consecutive Hours, Continuous Positive Airway Pressure (ICD-10-PCS; principal; 2022-05-16)
DX: J96.21 Acute and chronic respiratory failure with hypoxia (principal); E87.1 Hypo-osmolality and hyponatremia; R65.10 Systemic inflammatory response syndrome (SIRS) of non-infectious origin without acute organ dysfunction; Z28.21 Immunization not carried out because of patient refusal; J96.22 Acute and chronic respiratory failure with hypercapnia; F41.9 Anxiety disorder, unspecified; F31.9 Bipolar disorder, unspecified; E78.5 Hyperlipidemia, unspecified; E11.9 Type 2 diabetes mellitus without complications; N39.3 Stress incontinence (female) (male); F10.10 Alcohol abuse, uncomplicated; F25.9 Schizoaffective disorder, unspecified; F17.210 Nicotine dependence, cigarettes, uncomplicated; Z71.6 Tobacco abuse counseling; Z98.890 Other specified postprocedural states; Z88.0 Allergy status to penicillin; Z79.51 Long term (current) use of inhaled steroids; Z79.52 Long term (current) use of systemic steroids; Z79.899 Other long term (current) drug therapy
CPT/HCPCS: 36415; 71046; 80048; 80053; 82803; 82947; 83880; 84484; 85025; 93005; 93010; 94640; 94644; 94645; 94660; 94664; 94762; 96374; 99285-25; A9270; J1100; J1650; J2405; J2930

== ENCOUNTER 2022-06-03 14:23 | Emergency (ER) | payer OTHER ==
[~2022-06-03] VITALS: Ht 165.1 cm; Wt 77.1 kg
[2022-06-03 14:56] LABS: Hemoglobin 11.8 g/dL (11.5-16.0); Mean Corpuscular HGB 31.9 pg (26.0-34.0); Mean Corpuscular HGB Conc 28.8 g/dL (31.5-36.5); Mean Corpuscular Volume 111 fL (80-100); NRBC ABSOLUTE 0.18 K/mm3 (0.00-0.02); NRBC Auto 1.5 /100 WBC (0.0-0.2); Platelet Count 221 K/mm3 (150-400); RDW Coefficient Variation 14.5 % (11.7-14.2); RDW Standard Deviation 59.7 fL (35.1-46.3)
[2022-06-03 14:59] LABS: pH Blood Arterial 6.86 (7.35-7.45)
[2022-06-03 15:01] LABS: PCO2 Arterial > 104 mmHg (35-45); PO2 Arterial 40 mmHg (80-100)
[2022-06-03 15:12] LABS: International Normalized Ratio 1.03; Prothrombin Time Results 10.8 Sec (9.7-11.5)
[2022-06-03 15:13] LABS: Albumin, Blood 2.9 g/dL (3.4-5.0); Albumin/Globulin Ratio 0.9 (0.8-1.8); Bilirubin, Total 0.4 mg/dL (0.1-1.0); Bun/Creatinine Ratio 26.2 (12.0-20.0); Calcium, Blood 8.3 mg/dL (8.5-10.1); Creatinine, Blood 1.91 mg/dL (0.40-1.00); Globulin, Blood 3.4 g/dL (2.2-4.0); Potassium, Blood 5.6 mmol/L (3.5-5.5); Total Protein, Blood 6.3 g/dL (6.4-8.2)
[2022-06-03 15:42] LABS: BAND PERCENT MAN 5 % (0-8); BASOPHILS PERCENT MAN 0 % (0-2); EOSINOPHILS PERCENT MAN 0 % (0-6); LYMPHOCYTES PERCENT MAN 15 % (21-46); METAMYELOCYTE ABSOLUTE MAN 0.24 K/mm3 (0.00-0.00); METAMYELOCYTE PERCENT MAN 2 % (0-0); MONOCYTES ABSOLUTE MAN 1.44 K/mm3 (0.16-1.47); MONOCYTES PERCENT MAN 12 % (4-13); MYELOCYTE ABSOLUTE MAN 0.36 K/mm3 (0.00-0.00); MYELOCYTE PERCENT MAN 3 % (0-0); NEUTROPHILS ABSOLUTE MAN 8.16 K/mm3 (1.96-9.15); SEG NEUTROPHILS PERCENT MAN 63 % (41-73); TOTAL CELLS COUNTED 100
[2022-06-03 15:45] LABS: PCO2 Arterial > 104 mmHg (35-45); PO2 Arterial 492 mmHg (80-100); pH Blood Arterial 6.94 (7.35-7.45)
[2022-06-03 16:59] LABS: Influenza A, PCR NEGATIVE (NEGATIVE); Influenza B, PCR NEGATIVE (NEGATIVE); Resp Syncytial Virus, PCR NEGATIVE (NEGATIVE); SARS-Cov-2 (COVID-19) PCR, MMC NEGATIVE (NEGATIVE)
== END 2022-06-03 17:00 ==
LOC: ER 14:23
PROVIDERS: Emergency Medicine
DX: I46.9 Cardiac arrest, cause unspecified (principal); Z79.899 Other long term (current) drug therapy; Z79.52 Long term (current) use of systemic steroids
CPT/HCPCS: 0241U; 31500; 36600; 70450; 71045; 72125; 80053; 82803; 83605; 84484; 85025; 85610; 85730; 93005; 93010; 94002; 94644; 94645; 94664; J0282; J1953; J2060; J3475; J7060